=== PATIENT | male | born 1955 | race Caucasian/White ===

== ENCOUNTER → 2018-08-05 09:38 | Outpatient (CLI) | payer OTHER | END | disposition home or self-care (01) | LOC: D.CT 07-25 08:30 | DX: J01.90 Acute sinusitis, unspecified (principal) ==

== ENCOUNTER → 2019-09-29 09:29 | Outpatient (CLI) | payer OTHER ==
[2019-09-29 10:18] LABS: ALBUMIN 3.3 g/dL (3.4-5.0); BILIRUBIN - TOTAL 0.45 mg/dL (0.2-1.3); CALCIUM 10.1 mg/dL (8.5-10.1); CARBON DIOXIDE 23.8 mmol/L (21.0-32.0); CREATININE - SERUM 1.2 mg/dL (0.6-1.3); POTASSIUM - SERUM 4.8 mmol/L (3.5-5.1); PROTEIN - SERUM 7.8 g/dL (6.4-8.2)
[2019-09-29 10:24] LABS: BASOPHILS 0.3 % (0-2); EOSINOPHILS 3.8 % (0-7); HEMOGLOBIN 16.3 g/dL (13.5-17.5); IMMATURE GRANULOCYTES 0.3 % (0-5); LYMPHOCYTES 32.1 % (15-50); MCH 28.9 pg (26.0-34.0); MCV 85.1 fL (80.0-100.0); MONOCYTES 11.2 % (2-11); NEUTROPHILS 52.3 % (40-80); PLATELET COUNT 411 10x3/uL (130-400); RBC 5.64 10x6/uL (4.20-6.10); RDW 15.3 % (11.5-14.5); WBC 15.4 10x3/uL (4.8-10.8)
== END | disposition home or self-care (01) ==
LOC: D.CT 09:29
PROVIDERS: ATTEND Internal Medicine Gastroenterology
DX: D64.9 Anemia, unspecified (principal); K59.00 Constipation, unspecified; R14.0 Abdominal distension (gaseous)

== ENCOUNTER → 2019-10-19 09:20 | Outpatient (CLI) | payer OTHER | END | disposition home or self-care (01) | LOC: D.NM 09:20 | PROVIDERS: ATTEND Urology | DX: C64.9 Malignant neoplasm of unspecified kidney, except renal pelvis (principal) ==

== ENCOUNTER → 2019-12-08 12:41 | Outpatient (CLI) | payer OTHER ==
[2019-12-08 13:17] LABS: ANION GAP 14.1 mmol/L (8-16); CALCIUM 10.2 mg/dL (8.5-10.1); CARBON DIOXIDE 25.6 mmol/L (21.0-32.0); CREATININE - SERUM 1.2 mg/dL (0.6-1.3); POTASSIUM - SERUM 4.7 mmol/L (3.5-5.1)
== END | disposition home or self-care (01) ==
LOC: D.LAB 12:41 → D.RT 12-13 14:30 → D.LAB 12-13 14:30
PROVIDERS: ATTEND Internal Medicine Pulmonary Disease
DX: D86.9 Sarcoidosis, unspecified (principal)

== ENCOUNTER 2021-02-17 09:13 | Day surgery (SDC) | payer OTHER ==
[~2021-02-17] VITALS: Ht 195.6 cm; Wt 200.0 kg
[2021-02-17 09:42] LABS: BASOPHILS 0.3 % (0-2); HEMOGLOBIN 14.4 g/dL (13.5-17.5); IMMATURE GRANULOCYTES 0.3 % (0-5); LYMPHOCYTE ABS# 3.52 10x3/uL (1.32-3.57); LYMPHOCYTES 29.4 % (15-50); MCH 27.7 pg (26.0-34.0); MCHC 32.7 g/dL (31.0-37.0); MCV 84.8 fL (80.0-100.0); MEAN PLATELET VOLUME 9.8 fL (7.4-10.4); MONOCYTES 14.3 % (2-11); NEUTROPHIL ABS# 6.09 10x3/uL (1.78-5.38); NEUTROPHILS 50.7 % (40-80); PLATELET COUNT 418 10x3/uL (130-400); RBC 5.19 10x6/uL (4.20-6.10); RDW 15.3 % (11.5-14.5)
[2021-02-17 09:55] LABS: ANION GAP 14.1 mmol/L (8-16); CALCIUM 9.7 mg/dL (8.5-10.1); CREATININE - SERUM 1.3 mg/dL (0.6-1.3); POTASSIUM - SERUM 4.1 mmol/L (3.5-5.1)
[2021-02-17] MEDS ORDERED: NOVOLOG100 UNIT/1 SC (10:57)
[2021-02-17] MEDS ORDERED: LYRICA75 MG PO (10:58)
[2021-02-17] MEDS ORDERED: GLUCOPHAGE500 MG PO (10:58)
[2021-02-17] MEDS ORDERED: COZAAR100 MG PO (10:58)
[2021-02-17 11:00] VITALS: BP 198/98; Ht 195.6 cm; Wt 200.0 kg
--- NOTE | 2021-02-17 12:20 | NUR ---
FAXED ORDER TO OFFICE TO SCHEDULE 3 MONTH F/U VISIT 1225 DC TEACHING, PT VERBALIZES UNDERSTANDING 1230 PIV DC'D, CATHETER INTACT. 1235 DR WILSON AT BEDSIDE 1240 THIS NURSE ASSISTED PT TO GET DRESSED. 1303 PT DC'D TO POV WITH DRIVING, VIA WC BY THIS NURSE AND CLIFFORD. ALL BELONGINGS AND DC PACKET WITH PATIENT.
--- NOTE | 2021-02-18 14:32 | OP ---
PATIENT NAME: ARUN MATTA MEDICAL RECORD: [id number] LOCATION:D.OPS ADMISSION DATE: SURGEON: ROBERT WILSON DO DATE OF OPERATION: 02/17/2021 PROCEDURE: Colonoscopy. INDICATION FOR PROCEDURE: Change in bowel habits, constipation, gas and bloating. SCOPE: Olympus video pediatric colonoscope. MEDICATIONS: Propofol 600 mg IV per anesthesia. WITHDRAWAL TIME: 10 minutes. ESTIMATED BLOOD LOSS: None. COMPLICATIONS: None. FINDINGS: Informed consent was given. The patient was made comfortable with the above medication. After reaching an adequate level of sedation by slow IV push, the patient was placed on his left side. A digital rectal examination was performed and it was normal. The endoscope was advanced under direct visualization through the rectum to the cecum, confirmed by the presence of the appendiceal orifice and ileocecal valve. The endoscope was slowly withdrawn and the mucosa was carefully examined. The prep quality was fair. Difficulty was moderate with the patient requiring counterpressure and abdominal pressure, poor passage of the endoscope to the cecum. There were no polyps visualized on today's examination. There was mild diverticulosis visualized in the sigmoid colon. There was no evidence of diverticulitis. Retroflexion was performed in the rectum with visualization of grade I internal hemorrhoids without bleeding. The endoscope was withdrawn from the patient. The patient tolerated the procedure well and there were no complications. IMPRESSION: 1. Mild diverticulosis of the sigmoid colon. 2. Grade I internal hemorrhoids without bleeding. PLAN AND RECOMMENDATIONS: 1. Discharge home when recovery parameters are met. 2. High fiber diet. 3. Supplement diet with 1-2 tablespoons of Metamucil daily. 4. Okay to add 1 cap of MiraLax as needed on top of Metamucil for constipation. 5. Recall colonoscopy in 10 years. TRANSINT:[id number] Voice Confirmation ID: [id number] DOCUMENT ID: [id number] OPERATIVE REPORT [id number] ARUN MATTA ROBERT WILSON DO at 1432 CC: [id number] DICTATION DATE: 02/17/21 1153 CERTIFIED OPHTHALMIC TECHNOLOGIST: 02/17/21 1723 [facility] 02/17/21 [id number] [place] [address]
== END 2021-02-17 13:03 | disposition home or self-care (01) ==
LOC: D.OPS 09:13
PROVIDERS: Anesthesiology; ATTEND Internal Medicine Gastroenterology
DX: R19.4 Change in bowel habit (principal); R14.0 Abdominal distension (gaseous); K57.30 Diverticulosis of large intestine without perforation or abscess without bleeding; K64.0 First degree hemorrhoids; Z98.84 Bariatric surgery status; I10 Essential (primary) hypertension; E11.9 Type 2 diabetes mellitus without complications